=== PATIENT | male | born 1955 | race Caucasian/White ===

== ENCOUNTER 2025-07-15 11:29 | Outpatient (CLI) | payer MEDICARE, OTHER ==
--- NOTE | 2025-07-15 18:05 | CONSULTATION ---
DATE OF CONSULTATION: 07/15/2025 DICTATING PHYSICIAN: Shamika Apodaca M.S., [facility] MACHINE OPERATOR MODIFIED BARIUM SWALLOW STUDY REPORT REFERRING PHYSICIAN: Ryan Chau MD. HISTORY OF PRESENT ILLNESS: The patient is a 70-year-old male and consents to this evaluation. In history obtained from the patient and medical records, the patient reports symptoms of dysphagia including a 2-year history of choking episodes that have occurred 4-5 times in the last 2 years after eating and drinking. He reports that a couple of months ago, there was one severe episode in which he had loss of consciousness. The first time it occurred when he was eating a grain of rice. He reports that during the day, he feels a tickling sensation in his chest that lasts for the majority of the day. He also notes that when he takes a deep breath, he has to breathe in very slowly as he feels as if he were to take a quick breath that a drop of something would fall into his lungs. The patient is followed by Dr. Delaney and he has had an EGD twice that diagnosed reflux. He is also referred by ENT, Dr. Ryan Chau. CURRENT DIET: In terms of caffeine, the patient has 2 cups of coffee on a daily basis and occasionally will have soda. He does not utilize tobacco products. He drinks about a bottle of wine 6 days a week. He consumes chocolate on a daily basis. In terms of dairy products, the patient has milk in his coffee and cheese. A typical breakfast is a variety of different items, but it could be scrambled eggs with wheat toast, tomato sandwich, veggie burger, sausage, avocado sandwich, or bagel. He does not snack at all until his second meal, which is at 6:00 p.m. and may be a salad or tri-tip with veggies, and he goes to bed at midnight. He reports that he has his wine between 4:00 and 6:00 p.m. MEDICATIONS: Prilosec 20 mg daily ER once daily orally. PARAMETERS: The patient is seated in a lateral 90-degree view and administered the usual protocol of thin and nectar thick liquids, puree, and solid consistencies as well as self-regulated boluses of thin liquids from a cup. RESULTS: In the oral stage of the swallow, the patient was easily able to transfer the bolus from the anterior to the posterior oral cavity. There did not appear to be any difficulty with strength or range of motion of the tongue. The only time the patient demonstrated oral residue was for the 5 mL thin liquid, which was mild. In the pharyngeal stage of the swallow, tongue base retraction was mildly reduced. Swallow initiation was within functional limits. Anterior movement of the posterior pharyngeal wall was observed. Elevation of a hyothyroid complex was accomplished with full range of motion. There was no pharyngeal residue noted after the tail of the bolus passed. PES opening was within functional limits. At no time was the patient noted to penetrate or aspirate on any of the bolus sizes or consistencies. ANTERIOR, POSTERIOR VIEW: In the AP plane, the bolus split symmetrically between the piriform sinuses and there was proximal movement of the bolus noted to the level of the mid sternum. IMPRESSION: The patient demonstrates what appears to be a moderate pharyngoesophageal stage swallowing disorder characterized by proximal movement of the boluses to the level of the mid sternum. This finding can explain why the patient has signs and symptoms of laryngopharyngeal reflux disease. The patient has several dietary triggers that are known to exacerbate signs and symptoms of laryngopharyngeal reflux disease. DIAGNOSES: R13.14 dysphagia, pharyngoesophageal phase; K21.9, gastroesophageal reflux disease. PATIENT EDUCATION: Immediately following modified barium swallow study, the patient was able to view the results. A normal anatomy of the swallowing mechanism was revealed. The patient was able to see the proximal movement of the boluses in the AP view. The patient was instructed in laryngopharyngeal reflux disease precautions including dietary modifications and a written handout was provided to him. RECOMMENDATIONS: It is recommended that the patient follow the aforementioned laryngopharyngeal reflux disease precautions in the form of dietary modifications. He was also educated on the elimination diet at this time. LONG-TERM GOALS: The patient will maintain adequate hydration/nutrition with optimum safety and efficiency of swallow function on p.o. intake without overt signs and symptoms of aspiration for the highest possible diet level. FUNCTIONAL ORAL INTAKE: The FOIS was administered to establish and document a change in the functional eating activities of this patient over time. This is a 7-point scale with 1 indicating no oral intake and totally tube dependent and 7 indicating total oral intake with no restrictions. This patient received a 6, which indicates he has a total oral diet with multiple consistencies without special preparation, but with specific food limitations and precautions. G-CODE: [id number]. Thank you very much for asking me to participate in the care of this kind patient. Should you have any questions regarding this evaluation or recommendations, please do not hesitate to contact me at [phone]. During this examination, 2:32 minutes of fluoroscopy time and 40.79 CAK mGy were utilized. Shamika Apodaca M.S., [employer] M[employer]INE OPERATOR TID: [id number] RECEIPT: [id number] [place]/[facility]
== END 2025-07-15 23:59 | disposition home or self-care (01) ==
LOC: RAD 11:29
PROVIDERS: ATTEND Otolaryngology
DX: K21.9 Gastro-esophageal reflux disease without esophagitis (principal); R13.14 Dysphagia, pharyngoesophageal phase
CPT/HCPCS: 74230